=== PATIENT | male | born 1965 | race Caucasian/White ===

== ENCOUNTER 2020-11-25 08:05 | Day surgery (SDC) | payer BC ==
[~2020-11-25] VITALS: Ht 172.7 cm; Wt 79.7 kg
[~2020-11-25 08:05] MED LIST: ASPI325EC PO; ASPI81CH PO; AZIT250 PO; CEPH500 PO; CLON.5 PO; CLOP75 PO; CYCL10 PO; Cipro500 MG PO; Crutch1 EACH MISC; HYDACE5 PO; HYDPAM25 PO; HYOS.125 SL; LISI5 PO; NAPR500 PO; NEBI5 PO; NIAC500ER PO; OXYACE7.5T PO; PROM25 PO; Percocet 5-3251 EACH PO; Prinivil10 MG PO; ROSU10TA PO; TRILIPIX PO; ZOLP10 PO; Zofran4 MG PO
--- NOTE | 2020-11-25 09:48 | NUR ---
11/25/20 0948 Kevin Garcia PATIENT DETERMINED TO BE ASA APPROPRIATE FOR PROPOFOL SEDATION PRIOR TO START OF PROCEDURE BY DR. DELVALLE. 3-LEAD EKG REVIEWED WITH PHYSICIAN PRIOR TO START OF PROCEDURE. Patient to ENDO 1. History, Chart, Medications and Allergies reviewed before start of procedure. MONITOR INTACT WITH CONTINUOUS PULSE OXIMETRY AND INTERMITTENT BP. MONITOR INTACT WITH CONTINUOUS PULSE OXIMETRY AND INTERMITTENT BP. O2 VIA N/C INTACT THROUGHOUT SEDATION/PROCEDURE.
--- NOTE | 2020-11-25 10:45 | NUR ---
PT DENIES ABD CRAMPING OR PAIN c DRINK. GIVEN DC INSTRUCTIONS. PT VERBALIZES AN UNDERSTANDING, NO QUESTIONS. IV DC'D, CATH INTACT AND PRESSURE DRESSING APPLIED. DRESSED s DIFFICULTY. OTD IN NAD VIA WC, SISTER OUTSIDE WAITING FOR PT. GIVEN ADDITONAL INSTRUCTIONS. PT NOR SISTER HAVE QUESTIONS. HOME c SAFE RIDE HOME.
== END 2020-11-25 23:09 | disposition home or self-care (01) ==
LOC: ORSCMMR 08:05 → ORD 09:30 → ORSCMMR 09:30
PROVIDERS: Internal Medicine Gastroenterology
PROC: 0DBM8ZX Excision of Descending Colon, Via Natural or Artificial Opening Endoscopic, Diagnostic (ICD-10-PCS; principal; 2020-11-25 09:30)
PROC: 0DBN8ZX Excision of Sigmoid Colon, Via Natural or Artificial Opening Endoscopic, Diagnostic (ICD-10-PCS; principal; 2020-11-25 09:30)
DX: R19.5 Other fecal abnormalities (principal); D12.5 Benign neoplasm of sigmoid colon; D12.4 Benign neoplasm of descending colon; I25.2 Old myocardial infarction; I25.10 Atherosclerotic heart disease of native coronary artery without angina pectoris; F17.210 Nicotine dependence, cigarettes, uncomplicated; Z79.82 Long term (current) use of aspirin; Z79.899 Other long term (current) drug therapy
CPT/HCPCS: 88305; J2704; J7120

== ENCOUNTER 2021-01-12 10:51 | Emergency (ER) | payer BC ==
[~2021-01-12] VITALS: Ht 172.7 cm; Wt 77.1 kg
[2021-01-12 11:20] LABS: Calcium, Ionized (POC) 1.06 mmol/L (1.10-1.46); Chloride (POC) 100 mmol/L (98-108); Creatinine (POC) 0.8 mg/dL (0.8-1.3); Glucose (ISTAT POC) 78 mg/dL (70-99); Hemoglobin (POC) 18.7 g/dL (13.5-17.5); Potassium (POC) 4.3 mmol/L (3.5-5.5); Sodium (POC) 135 mmol/L (135-148); Total CO2 (POC) 28 mmol/L (21-32)
[2021-01-12 11:26] LABS: BASOPHILS ABSOLUTE AUTO 0.07 K/mm3 (0.00-0.23); BASOPHILS PERCENT AUTO 1 % (0-2); EOSINOPHILS PERCENT AUTO 3 % (0-6); Hematocrit 51.9 % (37.0-53.0); Hemoglobin 17.7 g/dL (13.5-17.5); IMMATURE GRAN ABSOLUTE AUTO 0.04 K/mm3 (0.00-0.10); IMMATURE GRAN PERCENT AUTO 0 % (0-1); LYMPHOCYTES ABSOLUTE AUTO 3.05 K/mm3 (0.84-5.20); LYMPHOCYTES PERCENT AUTO 28 % (21-46); MONOCYTES ABSOLUTE AUTO 0.83 K/mm3 (0.16-1.47); MONOCYTES PERCENT AUTO 8 % (4-13); Mean Corpuscular HGB Conc 34.1 g/dL (31.5-36.5); Mean Corpuscular Volume 94 fL (80-100); Mean Platelet Volume 10.6 fL (9.1-12.4); NEUTROPHILS ABSOLUTE AUTO 6.44 K/mm3 (1.96-9.15); NEUTROPHILS PERCENT AUTO 60 % (41-73); Platelet Count 366 K/mm3 (150-400); RDW Coefficient Variation 11.7 % (11.7-14.2); RDW Standard Deviation 40.6 fL (35.1-46.3); Red Blood Cell Count 5.53 M/mm3 (4.30-5.90); White Blood Cell Count 10.73 K/mm3 (4.00-11.30)
[2021-01-12 11:44] LABS: Alanine Aminotransfer (ALT/SGP 23 U/L (12-78); Albumin, Blood 3.4 g/dL (3.4-5.0); Albumin/Globulin Ratio 0.7 (0.8-1.8); Alk Phos 75 U/L (50-136); Anion Gap 5 mmol/L (6-16); Aspartate Aminotrans (AST/SGOT 24 U/L (12-37); Bilirubin, Total 0.6 mg/dL (0.1-1.0); Blood Urea Nitrogen 10 mg/dL (8-24); Bun/Creatinine Ratio 13.4 (12.0-20.0); CO2, Blood 25 mmol/L (21-32); Calcium, Blood 8.8 mg/dL (8.5-10.1); Chloride, Blood 101 mmol/L (98-108); Creatinine, Blood 0.75 mg/dL (0.60-1.20); Glomerular Filtration Rate >60 (60-); Glucose, Blood 78 mg/dL (70-99); Potassium, Blood 4.4 mmol/L (3.5-5.5); Sodium, Blood 131 mmol/L (136-145); Total Protein, Blood 8.4 g/dL (6.4-8.2)
[2021-01-12] MEDS ORDERED: OXYACE7.5T PO (13:27)
== END 2021-01-12 14:00 | disposition home or self-care (01) ==
LOC: ER 10:51
PROVIDERS: Emergency Medicine
DX: R91.8 Other nonspecific abnormal finding of lung field (principal); I25.2 Old myocardial infarction; F17.200 Nicotine dependence, unspecified, uncomplicated; Z95.5 Presence of coronary angioplasty implant and graft
CPT/HCPCS: 36415; 71260; 80047; 80053; 85014; 85025; 93005; 93010; 99284-25; Q9967

== ENCOUNTER → 2021-01-12 | Outpatient (CLI) | payer BC | LOC: LAB SHORT 09:45 | DX: R07.9 Chest pain, unspecified (principal) | CPT/HCPCS: 85379 ==

== ENCOUNTER 2021-01-23 06:31 | Emergency (ER) | payer BC, OTHER ==
[~2021-01-23] VITALS: Ht 172.7 cm; Wt 79.4 kg
[2021-01-23 07:55] LABS: Calcium, Ionized (POC) 1.16 mmol/L (1.10-1.46); Chloride (POC) 99 mmol/L (98-108); Creatinine (POC) 0.7 mg/dL (0.8-1.3); Glucose (ISTAT POC) 96 mg/dL (70-99); Hemoglobin (POC) 17.7 g/dL (13.5-17.5); Potassium (POC) 4.5 mmol/L (3.5-5.5); Sodium (POC) 139 mmol/L (135-148); Total CO2 (POC) 25 mmol/L (21-32)
[2021-01-23 09:21] LABS: Source, Urine Clean Catch
[2021-01-23] MEDS ORDERED: CYCL10 PO (09:23)
[2021-01-23] MEDS ORDERED: OXYACE7.5T PO (09:23)
[2021-01-23 09:30] LABS: Bilirubin, Urine Neg (Neg); Blood, Urine 2+ (Neg); Glucose Qualitative, Urine Neg (Neg); Ketones, Urine Neg (Neg); Leukocyte Esterase, Urine Neg (Neg); Nitrite, Urine Neg (Neg); Protein, Urine Neg (Neg); Urobilinogen, Urine NORM (Normal)
[2021-01-23 09:32] LABS: Appearance, Urine Clear (Clear); Color, Urine Yellow (P-Yellow)
[2021-01-23 09:45] LABS: Bacteria Few /hpf; Mucus Light (0-Heavy); Squamous Epithelial Cells Not Seen /hpf (Few); White Blood Cells, Urine 0-2 /hpf (0-5)
== END 2021-01-23 09:36 | disposition home or self-care (01) ==
LOC: ER 06:31
PROVIDERS: Emergency Medicine
DX: M54.16 Radiculopathy, lumbar region (principal); I25.2 Old myocardial infarction; Z79.82 Long term (current) use of aspirin; Z87.891 Personal history of nicotine dependence
CPT/HCPCS: 36415; 72100; 80047; 81001; 85014; 99283-25; A9270; J1100

== ENCOUNTER 2021-03-12 09:26 | Inpatient (IN) | payer BC, OTHER ==
[~2021-03-12] VITALS: Ht 172.7 cm; Wt 77.2 kg
[2021-03-12] MEDS ORDERED: IBUP600 PO (09:39)
[2021-03-12] MEDS ORDERED: Lyrica25 MG PO (09:40)
[2021-03-12 09:54] LABS: BASOPHILS ABSOLUTE AUTO 0.05 K/mm3 (0.00-0.23); BASOPHILS PERCENT AUTO 0 % (0-2); EOSINOPHILS ABSOLUTE AUTO 0.01 K/mm3 (0.00-0.68); EOSINOPHILS PERCENT AUTO 0 % (0-6); Hematocrit 41.7 % (37.0-53.0); Hemoglobin 13.4 g/dL (13.5-17.5); IMMATURE GRAN ABSOLUTE AUTO 0.15 K/mm3 (0.00-0.10); IMMATURE GRAN PERCENT AUTO 1 % (0-1); LYMPHOCYTES ABSOLUTE AUTO 0.97 K/mm3 (0.84-5.20); LYMPHOCYTES PERCENT AUTO 5 % (21-46); MONOCYTES ABSOLUTE AUTO 1.38 K/mm3 (0.16-1.47); MONOCYTES PERCENT AUTO 7 % (4-13); Mean Corpuscular HGB 28.6 pg (26.0-34.0); Mean Corpuscular HGB Conc 32.1 g/dL (31.5-36.5); Mean Corpuscular Volume 89 fL (80-100); Mean Platelet Volume 10.3 fL (9.1-12.4); NEUTROPHILS ABSOLUTE AUTO 17.35 K/mm3 (1.96-9.15); NEUTROPHILS PERCENT AUTO 87 % (41-73); Platelet Count 435 K/mm3 (150-400); RDW Standard Deviation 42.5 fL (35.1-46.3); Red Blood Cell Count 4.68 M/mm3 (4.30-5.90); White Blood Cell Count 19.91 K/mm3 (4.00-11.30)
[2021-03-12 10:27] LABS: Alanine Aminotransfer (ALT/SGP 34 U/L (12-78); Albumin, Blood 2.5 g/dL (3.4-5.0); Albumin/Globulin Ratio 0.4 (0.8-1.8); Alk Phos 107 U/L (50-136); Anion Gap 5 mmol/L (6-16); Aspartate Aminotrans (AST/SGOT 51 U/L (12-37); Bilirubin, Total 0.7 mg/dL (0.1-1.0); Blood Urea Nitrogen 12 mg/dL (8-24); CO2, Blood 29 mmol/L (21-32); Calcium, Blood 9.3 mg/dL (8.5-10.1); Chloride, Blood 99 mmol/L (98-108); Creatinine, Blood 0.67 mg/dL (0.60-1.20); Globulin, Blood 6.2 g/dL (2.2-4.0); Glomerular Filtration Rate >60 (60-); Glucose, Blood 164 mg/dL (70-99); Potassium, Blood 3.8 mmol/L (3.5-5.5); Sodium, Blood 133 mmol/L (136-145); Total Protein, Blood 8.7 g/dL (6.4-8.2)
[2021-03-12 10:49] LABS: International Normalized Ratio 1.18; Prothrombin Time Results 12.6 Sec (9.7-11.5)
[2021-03-12] MEDS ORDERED: ENDOCET 7.5-321 EACH PO (11:52)
[2021-03-12] MEDS ORDERED: PREGABALIN75 MG PO (11:52)
[2021-03-12] MEDS ORDERED: LIDOCAINE1 EACH TOP (11:56)
[2021-03-12] MEDS ORDERED: Cyclobenzaprine10 MG PO (11:56)
--- NOTE | 2021-03-12 13:39 | NUR ---
Patient arrived from ER about 30 minutes ago and was able to transfer self to ICU 16 bed. He states no real cardiac chest pain, just right sided pain that he feels from his cancer. He has Nitro gtt at 15 mcg and heparin at 13 units/kg/min. Assessmet and admission done. Dr Mccarthy by and updated patient on times. He will be going to collaborative teacher around three to four [address] Dr Alcala stated clear liq diet. Patient is alert and oriented and is able to communicate his needs.
--- NOTE | 2021-03-12 15:30 | NUR ---
Patient remains in chair and on trach collar at 40% FiO2 and sast mid to upper 90%'s. He had thought that he had another BM was small smear and cleaned him up. He has been resting well in chair and we agreed back to bed at 1630. Have suctioned several more time thisk serosanguinous fluid. VSS, See EMR. Patient states breathing fine on trach collar and feels no SOB while on trach collar.
--- NOTE | 2021-03-12 15:30 | NUR ---
Family at bedside. Patient resting and c/o pain right side and medicated per NOV. VSS See EMR. He asked for water and tolerating well.Heparin reamins at 13 units/kg/min and Nitro gtt at 15 mcg., denies any chest pain.
--- NOTE | 2021-03-12 17:22 | NUR ---
Patient just left to rn labor delivery. Medicated with new order from Dr Alcala for pain. Placed 2L O2 via NC for sats high 80 while dozing and sats 96% currently. Family followed to rn labor delivery waiting room . Pulled 18ga RAC as it was hurting when flushed. Heparin 13 units/kg/min and Nitro gtt at 15 mcg.
--- NOTE | 2021-03-12 21:00 | NUR ---
PT RETURNS FROM [facility] AT 1946. REPORT RECEIVED AT BEDSIDE. PT HAS TR BAND ON RIGHT WRIST. NO OOZING OR HEMATOMA NOTED. GOOD DISTAL CMS CHECKS. PT SLIGHTLY IRRITABLE CONCERNING HAVING TO BE IN THE HOSPITAL AND VISITATION RESTRICTIONS. TEACHING DONE ON RATIONALE FOR THESE. PT IN AGREEMENT. DR VEGA COMES IN TO SEE PT AND SPEAKS TO PT AND GIVES UPDATE. WILL REVIEW CHART AND PLAN OF CARE FOR THIS PT.
--- NOTE | 2021-03-13 00:51 | NUR ---
TR BAND WITHOUT S/S HEMATOMA OR OOZING. HAVE STARTED PROCESS OF DEFLATION. DID DELAY THIS PROCESS SECONDARY TO REPORTED CRITICAL HIGH PTT FROM EARLIER DRAW. PT HAS BEEN ABLE TO SLEEP WELL AFTER BEING MEDICATED WITH OXYCODONE/APAP AND EARLIER WITH MORPHINE FOR RIGHT SIDE CHEST PAIN. WILL CONTINUE TO MONITOR. VOIDS Q.S. CONCENTRATED URINE PER URINAL.
[2021-03-13 03:43] LABS: BASOPHILS ABSOLUTE AUTO 0.05 K/mm3 (0.00-0.23); BASOPHILS PERCENT AUTO 0 % (0-2); EOSINOPHILS ABSOLUTE AUTO 0.04 K/mm3 (0.00-0.68); EOSINOPHILS PERCENT AUTO 0 % (0-6); Hematocrit 33.4 % (37.0-53.0); Hemoglobin 10.7 g/dL (13.5-17.5); IMMATURE GRAN ABSOLUTE AUTO 0.14 K/mm3 (0.00-0.10); IMMATURE GRAN PERCENT AUTO 1 % (0-1); LYMPHOCYTES PERCENT AUTO 8 % (21-46); MONOCYTES ABSOLUTE AUTO 1.87 K/mm3 (0.16-1.47); MONOCYTES PERCENT AUTO 10 % (4-13); Mean Corpuscular HGB 28.8 pg (26.0-34.0); Mean Corpuscular Volume 90 fL (80-100); Mean Platelet Volume 10.1 fL (9.1-12.4); NEUTROPHILS ABSOLUTE AUTO 14.78 K/mm3 (1.96-9.15); NEUTROPHILS PERCENT AUTO 81 % (41-73); Platelet Count 383 K/mm3 (150-400); RDW Coefficient Variation 13.2 % (11.7-14.2); RDW Standard Deviation 43.8 fL (35.1-46.3); Red Blood Cell Count 3.71 M/mm3 (4.30-5.90); White Blood Cell Count 18.28 K/mm3 (4.00-11.30)
[2021-03-13 04:15] LABS: Alanine Aminotransfer (ALT/SGP 21 U/L (12-78); Albumin, Blood 1.9 g/dL (3.4-5.0); Albumin/Globulin Ratio 0.4 (0.8-1.8); Alk Phos 82 U/L (50-136); Anion Gap 5 mmol/L (6-16); Aspartate Aminotrans (AST/SGOT 37 U/L (12-37); Bilirubin, Total 0.8 mg/dL (0.1-1.0); Blood Urea Nitrogen 12 mg/dL (8-24); Bun/Creatinine Ratio 17.1 (12.0-20.0); CO2, Blood 28 mmol/L (21-32); Calcium, Blood 8.2 mg/dL (8.5-10.1); Chloride, Blood 100 mmol/L (98-108); Globulin, Blood 5.1 g/dL (2.2-4.0); Glomerular Filtration Rate >60 (60-); Glucose, Blood 111 mg/dL (70-99); Magnesium, Blood 1.9 mg/dL (1.6-2.4); Potassium, Blood 3.6 mmol/L (3.5-5.5); Sodium, Blood 133 mmol/L (136-145)
--- NOTE | 2021-03-13 07:15 | NUR ---
Assumed care of pt at 0700. Bedside report received from Seth RYAN. Pt A&O x 4. Answers questions. Follows commands. Verbalizes needs. Pleasant and cooperative with care. SR per monitor. SpO2 90% or greater with room air. Pt reports baseline rib pain d/t cancer but no other chest pain. Right TR site dressed with opsite C/D/I. Armboard in place and pt verbalizes understanding of R wrist limitations. Color, sensation, pulses, capillary refill equal BUE. No bruising, drainage, or hematoma to right wrist. Bed in lowest position. Call light in reach. Pt denies need at this time.
--- NOTE | 2021-03-13 07:24 | NUR ---
HAVE MEDICATED PT TWICE WITH 7.5 MG PERCOCET FOR RIGHT RIB PAIN. PT DID ALSO HAVE LOW GRADE TEMP OF 100.1 EARLIER. ADDED 1 TYLENOL 325 MG IN ADDITION TO 1 PERCOCET. PT HAS NO FURTHER COMPLAINTS. DID STATE THAT HE SLEPT BETTER THIS NIGHT MORESO THAN HE HAS IN AWHILE. TR BAND HAS BEEN OFF. NO S/S OOZING OR HEMATOMA. OPSITE DRESSING OVER RIGHT RADIAL PUNCTURE SITE. ARMBOARD IN PLACE. REPORT GIVEN TO ONCOMING RN.
--- NOTE | 2021-03-13 16:16 | NUR ---
Dr Gunter in to see pt today and states that from cardiology standpoint, pt is eligible to discharge home today. Dr Miller plans to keep pt overnight for IV antibiotics due to fever. Pt understands plan and is agreeable. Pt medical floor status without telemetry. Pt states he is having his baseline, cancer related chest pain. Right radial site unchanged. Plans for pt transfer to room 342.
--- NOTE | 2021-03-13 17:04 | NUR ---
Pt transferred to room 342. Telephone report given to Berkley RYAN. Chart, medications, and belongings transferred with patient
--- NOTE | 2021-03-13 17:10 | NUR ---
SHIFT SUMMARY/PT TRANSFERED PT TRANSFERED FROM ICU. PT MEDICATED FOR PAIN. K PAD SET UP FOR PAIN RELIEF OF R THORASIC AREA. NO ACUTE CHANGES FROM PREVIOUS NURSES ASSESSMENT. PT ORIENTED AND FAMLIY AT BEDSIDE. CALL LIGHT IN REACH. PT DENIED OTHER NEEDS AT THIS TIME.
--- NOTE | 2021-03-14 04:43 | NUR ---
SHIFT SUMMARY PT CONTINUED TO HAVE R THORACIC PAIN R/T LUNG CA. R THORACIC DOES APPEAR TO BE SOMEWHAT SWOLLEN. MORE PAINFUL WITH MOVEMENT. MEDICATED X 2 W/ 1 TAB PERCOCET THIS EVENING WITH GOOD EFFECT. PT ABLE TO SLEEP AFTER MEDICATED. PT IN THE LOW TO MID 80'S ON RA AFTER GETTING UP TO THE RESTROOM. PT DOES BECOME SHORT OF BREATH WITH EXERTION. PT PLACED ON 2 L VIA NC BRINGING O2 SATS UP TO THE MID 90'S. PT DENIES CHEST PAIN. OTHERWISE NO ACUTE CHANGES THIS EVENING. VITAL SIGNS STABLE. WILL CONTINUE TO MONITOR.
[2021-03-14 05:03] LABS: BASOPHILS ABSOLUTE AUTO 0.05 K/mm3 (0.00-0.23); BASOPHILS PERCENT AUTO 0 % (0-2); EOSINOPHILS ABSOLUTE AUTO 0.11 K/mm3 (0.00-0.68); EOSINOPHILS PERCENT AUTO 1 % (0-6); Hematocrit 33.7 % (37.0-53.0); Hemoglobin 10.8 g/dL (13.5-17.5); IMMATURE GRAN ABSOLUTE AUTO 0.15 K/mm3 (0.00-0.10); IMMATURE GRAN PERCENT AUTO 1 % (0-1); LYMPHOCYTES ABSOLUTE AUTO 1.52 K/mm3 (0.84-5.20); LYMPHOCYTES PERCENT AUTO 9 % (21-46); MONOCYTES ABSOLUTE AUTO 1.82 K/mm3 (0.16-1.47); MONOCYTES PERCENT AUTO 11 % (4-13); Mean Corpuscular HGB 28.3 pg (26.0-34.0); Mean Corpuscular Volume 89 fL (80-100); NEUTROPHILS PERCENT AUTO 78 % (41-73); Platelet Count 390 K/mm3 (150-400); RDW Coefficient Variation 13.3 % (11.7-14.2); RDW Standard Deviation 42.9 fL (35.1-46.3); Red Blood Cell Count 3.81 M/mm3 (4.30-5.90); White Blood Cell Count 16.35 K/mm3 (4.00-11.30)
[2021-03-14 05:44] LABS: Alanine Aminotransfer (ALT/SGP 27 U/L (12-78); Albumin, Blood 1.7 g/dL (3.4-5.0); Albumin/Globulin Ratio 0.3 (0.8-1.8); Alk Phos 110 U/L (50-136); Anion Gap 6 mmol/L (6-16); Aspartate Aminotrans (AST/SGOT 29 U/L (12-37); Bilirubin, Total 0.6 mg/dL (0.1-1.0); Blood Urea Nitrogen 13 mg/dL (8-24); Bun/Creatinine Ratio 20.1 (12.0-20.0); CO2, Blood 28 mmol/L (21-32); Calcium, Blood 8.1 mg/dL (8.5-10.1); Chloride, Blood 99 mmol/L (98-108); Creatinine, Blood 0.65 mg/dL (0.60-1.20); Globulin, Blood 5.1 g/dL (2.2-4.0); Glomerular Filtration Rate >60 (60-); Glucose, Blood 139 mg/dL (70-99); Magnesium, Blood 2.1 mg/dL (1.6-2.4); Potassium, Blood 3.4 mmol/L (3.5-5.5); Sodium, Blood 133 mmol/L (136-145); Total Protein, Blood 6.8 g/dL (6.4-8.2)
[2021-03-14] MEDS ORDERED: ACET325 PO (11:43)
[2021-03-14] MEDS ORDERED: ASPI81CH PO (11:44)
[2021-03-14] MEDS ORDERED: ALBU90OI INH (11:44)
[2021-03-14] MEDS ORDERED: AZIT250 PO (11:45)
[2021-03-14] MEDS ORDERED: ATOR80 PO (11:45)
[2021-03-14] MEDS ORDERED: CEFP200 PO (11:46)
[2021-03-14] MEDS ORDERED: FAMO20 PO (11:46)
[2021-03-14] MEDS ORDERED: CLOP75 PO (11:46)
[2021-03-14] MEDS ORDERED: METO50 PO (11:47)
[2021-03-14] MEDS ORDERED: LIDO700A20 TOP (11:47)
[2021-03-14] MEDS ORDERED: ONDA4ODT MM (11:48)
[2021-03-14] MEDS ORDERED: NITR.4SL SL (11:48)
[2021-03-14] MEDS ORDERED: LACT PO (11:49)
--- NOTE | 2021-03-14 12:08 | NUR ---
PT TO DISCHARGE HOME . MEDS FAXED TO PHARMACY OF CHOICE.NURSE SENT HOME EDUCATION REGARDING NEW MEDS AND DISCUSSED WITH PT.PT HAS FOLLOW UP WITH PCP AND [facility] TO CALL AND [facility]. PT TO DISCHARGE ON . PT TO BE TAKEN HOME BY DAUGHTER AND WHEELED DOWN .
== END 2021-03-14 14:08 | disposition home or self-care (01) | DRG 248 ==
LOC: ER 09:26 → PCU 09:27 → ICUW 09:27 → MEDS 03-13 16:53
PROVIDERS: Emergency Medicine; ADMIT Family Medicine
PROC: 02713FZ Dilation of Coronary Artery, Two Arteries with Three Intraluminal Devices, Percutaneous Approach (ICD-10-PCS; principal; 2021-03-12)
PROC: B2111ZZ Fluoroscopy of Multiple Coronary Arteries using Low Osmolar Contrast (ICD-10-PCS; 2021-03-12)
DX: I21.09 ST elevation (STEMI) myocardial infarction involving other coronary artery of anterior wall (principal); J18.9 Pneumonia, unspecified organism; E87.1 Hypo-osmolality and hyponatremia; J90 Pleural effusion, not elsewhere classified; C34.91 Malignant neoplasm of unspecified part of right bronchus or lung; J91.8 Pleural effusion in other conditions classified elsewhere; C79.51 Secondary malignant neoplasm of bone; Z20.822 Contact with and (suspected) exposure to COVID-19; I25.2 Old myocardial infarction; Z95.5 Presence of coronary angioplasty implant and graft; Z87.891 Personal history of nicotine dependence; Z79.899 Other long term (current) drug therapy
CPT/HCPCS: 36415; 71045; 76937; 80053; 83735; 84145; 84484; 85025; 85347; 85610; 85730; 92928; 92929; 93005; 93010; 93306; 93454; 93571; 94640; 94667; 94668; 94760; 94761; 96365; 96366; 96375; 96376; 99152; 99153; 99285-25; A9270; C1725; C1769; C1876; C1887; C1894; G0378; J0696; J1170; J1644; J2250; J2270; J2370; J2405; J3010; J7030; J7040; J7050; Q9967

== ENCOUNTER 2021-03-19 10:59 | Inpatient (IN) | payer BC, OTHER ==
[~2021-03-19] VITALS: Ht 172.7 cm; Wt 75.6 kg
[~2021-03-19 10:59] MED LIST changes: +ACET325 PO; +ALBU90OI INH; +ATOR80 PO; +CEFP200 PO; +Cyclobenzaprine10 MG PO; +ENDOCET 7.5-321 EACH PO; +FAMO20 PO; +IBUP600 PO; +LACT PO; +LIDO700A20 TOP; +LIDOCAINE1 EACH TOP; +Lyrica25 MG PO; +METO50 PO; +NITR.4SL SL; +ONDA4ODT MM; +PREGABALIN75 MG PO
[2021-03-19 11:33] LABS: BASOPHILS ABSOLUTE AUTO 0.09 K/mm3 (0.00-0.23); BASOPHILS PERCENT AUTO 1 % (0-2); EOSINOPHILS ABSOLUTE AUTO 0.53 K/mm3 (0.00-0.68); EOSINOPHILS PERCENT AUTO 3 % (0-6); Hematocrit 40.4 % (37.0-53.0); Hemoglobin 12.8 g/dL (13.5-17.5); IMMATURE GRAN ABSOLUTE AUTO 0.21 K/mm3 (0.00-0.10); IMMATURE GRAN PERCENT AUTO 1 % (0-1); LYMPHOCYTES ABSOLUTE AUTO 2.98 K/mm3 (0.84-5.20); LYMPHOCYTES PERCENT AUTO 18 % (21-46); MONOCYTES ABSOLUTE AUTO 1.58 K/mm3 (0.16-1.47); MONOCYTES PERCENT AUTO 9 % (4-13); Mean Corpuscular HGB 28.1 pg (26.0-34.0); Mean Corpuscular HGB Conc 31.7 g/dL (31.5-36.5); Mean Corpuscular Volume 89 fL (80-100); Mean Platelet Volume 9.9 fL (9.1-12.4); NEUTROPHILS ABSOLUTE AUTO 11.56 K/mm3 (1.96-9.15); NEUTROPHILS PERCENT AUTO 68 % (41-73); Platelet Count 713 K/mm3 (150-400); RDW Coefficient Variation 13.5 % (11.7-14.2); RDW Standard Deviation 44.2 fL (35.1-46.3); Red Blood Cell Count 4.55 M/mm3 (4.30-5.90); White Blood Cell Count 16.95 K/mm3 (4.00-11.30)
[2021-03-19 11:48] LABS: Alanine Aminotransfer (ALT/SGP 46 U/L (12-78); Albumin, Blood 2.3 g/dL (3.4-5.0); Albumin/Globulin Ratio 0.3 (0.8-1.8); Alk Phos 159 U/L (50-136); Anion Gap 5 mmol/L (6-16); Aspartate Aminotrans (AST/SGOT 39 U/L (12-37); Bilirubin, Total 0.5 mg/dL (0.1-1.0); Blood Urea Nitrogen 13 mg/dL (8-24); Bun/Creatinine Ratio 20.2 (12.0-20.0); CO2, Blood 29 mmol/L (21-32); Calcium, Blood 9.7 mg/dL (8.5-10.1); Chloride, Blood 99 mmol/L (98-108); Creatinine, Blood 0.65 mg/dL (0.60-1.20); Globulin, Blood 6.6 g/dL (2.2-4.0); Glomerular Filtration Rate >60 (60-); Glucose, Blood 118 mg/dL (70-99); Potassium, Blood 3.9 mmol/L (3.5-5.5); Sodium, Blood 133 mmol/L (136-145); Total Protein, Blood 8.9 g/dL (6.4-8.2)
--- NOTE | 2021-03-19 14:30 | NUR ---
UPDATE PT FROM SANDER MACHINE TO ROOM ICU 11. PT ALERT AND ORIENTED. NO CP REPORTED. REPORT RECIEVED FROM SANDER MACHINE RN. TR BAND IN PLACE. SITE WNL. NO BLEEDING. C/D/I. VS STABLE. CARDIOLOGY ORDERS TO HAVE HOSPITALIST CONSULT. HOSPITALIST NOTIFIED. ORDERS TO HAVE PT ICU STATUS, INPATIENT. SEE ORDERS. ORDERS FOR PT TO HAVE HEAD CT WWO CONTRAST. ORDERS PUT IN. FAMILY AT BEDSIDE.
[2021-03-19 14:46] LABS: BASOPHILS ABSOLUTE AUTO 0.08 K/mm3 (0.00-0.23); BASOPHILS PERCENT AUTO 0 % (0-2); EOSINOPHILS ABSOLUTE AUTO 0.27 K/mm3 (0.00-0.68); EOSINOPHILS PERCENT AUTO 1 % (0-6); IMMATURE GRAN ABSOLUTE AUTO 0.23 K/mm3 (0.00-0.10); IMMATURE GRAN PERCENT AUTO 1 % (0-1); LYMPHOCYTES ABSOLUTE AUTO 2.22 K/mm3 (0.84-5.20); LYMPHOCYTES PERCENT AUTO 10 % (21-46); MONOCYTES ABSOLUTE AUTO 1.33 K/mm3 (0.16-1.47); MONOCYTES PERCENT AUTO 6 % (4-13); Mean Corpuscular HGB 28.4 pg (26.0-34.0); Mean Corpuscular HGB Conc 32.4 g/dL (31.5-36.5); Mean Corpuscular Volume 88 fL (80-100); NEUTROPHILS ABSOLUTE AUTO 17.72 K/mm3 (1.96-9.15); NEUTROPHILS PERCENT AUTO 81 % (41-73); Platelet Count 616 K/mm3 (150-400); RDW Coefficient Variation 13.4 % (11.7-14.2); RDW Standard Deviation 42.8 fL (35.1-46.3); Red Blood Cell Count 4.23 M/mm3 (4.30-5.90); White Blood Cell Count 21.85 K/mm3 (4.00-11.30)
--- NOTE | 2021-03-19 15:17 | NUR ---
UPDATE PT TO CT SCAN. PT WENT BY BED WITH THIS RN AND ASSISTANT PROJECT ENGINEER. PT TOLERATED WELL. HOSPITALIST AWARE OF PT'S HYPERTENION AND THAT PT WILL RECIEVER MEDICATIONS FOR HYPERTENSION THIS EVENING. SEE EMAR. NO OTHER ORDERS AT THIS TIME.
--- NOTE | 2021-03-19 18:30 | NUR ---
SHIFT SUMMARY PT ARRIVED TO UNIT FROM FORECLOSURE FIELD INSPECTOR THIS AFTERNOON. VS STABLE. PT HYPERTENSIVE AT TIMES. PHYSICIAN NOTFIFIED. MEDICATED PER EMAR. PHYSICIAN AWARE OF CONT HYPERTENSION. PT REPORTS PAIN IN CHEST. EKG DONE AND CARDIOLOGY AT BEDSIDE. NITRO GIVEN PER PHYSICIAN ORDER. PT REPORTS NO RELIEF. UPON ASSESSMENT FROM CARDIOLOGY, PAIN LIKELY NOT CARDIAC RELATED. MEDICATED FOR PAIN PER PHYSICIAN ORDER. TR BAND AND ARM BOARD IN PLACE. SENSATION IN FINGERS INTACT. SITE WNL. NO HEMATOMA AT SITE. WILL CONT TO MONITOR UNTIL REPORT GIVEN TO NIGHTSHIFT RN.
--- NOTE | 2021-03-20 05:47 | NUR ---
SHIFT SUMMARY PT WAS IRRITABLE AND REMIANED UNCOMFORTABLE THROUGHOUT NIGHT. C/O SOME CHEST PAIN THAT IS NOT SAME CHEST PAIN THAT HE INITIALLY CAME IN WITH. PT STATES HE SPOKE WITH CARDIOLOGY AND CARDS SUGGESTED THE PAIN IS LIKELY CHEST WALL PAIN AFTER PROCEDURE. PT AGREED. NIGHT WENT ON, PT WAS COMPLAINING OF NOT BEING ABLE TO BREATHE, BUT 02 SATS STABLE ON ROOM AIR, PT DID SAY HE WEARS 3LNC PRN AT HOME WHEN HE FEELS LIKE HE NEEDS MORE O2 R/T RECENT LUNG CANCER DIAGNOSIS. ALBUTEROL TX GIVEN TO ATTEMPT TO MAKE PT COMFORTABLE, ALONG IWTH PAIN MEDICATION. VOIDING TO URINAL, NO BM. TR BAND REMOVED WITHOUT COMPLICATION AT SHIFT CHANGE IWTH DAY RN ON PREVIOUS SHIFT. BP REMAINS ELEVATED, BUT LIKELY R/T PT UNCOMFORTABILITY/IRRITABILITY. OTHER VSS. CALL LIGHT WITHIN REACH, BED IN LOWEST POSITION. WILL CONTINUE TO MONITOR.
[2021-03-20 06:18] LABS: BASOPHILS ABSOLUTE AUTO 0.08 K/mm3 (0.00-0.23); BASOPHILS PERCENT AUTO 0 % (0-2); EOSINOPHILS ABSOLUTE AUTO 0.14 K/mm3 (0.00-0.68); EOSINOPHILS PERCENT AUTO 1 % (0-6); Hematocrit 37.3 % (37.0-53.0); Hemoglobin 12.4 g/dL (13.5-17.5); IMMATURE GRAN ABSOLUTE AUTO 0.21 K/mm3 (0.00-0.10); IMMATURE GRAN PERCENT AUTO 1 % (0-1); LYMPHOCYTES ABSOLUTE AUTO 1.59 K/mm3 (0.84-5.20); LYMPHOCYTES PERCENT AUTO 8 % (21-46); MONOCYTES PERCENT AUTO 7 % (4-13); Mean Corpuscular HGB 28.4 pg (26.0-34.0); Mean Corpuscular HGB Conc 33.2 g/dL (31.5-36.5); Mean Corpuscular Volume 85 fL (80-100); NEUTROPHILS ABSOLUTE AUTO 17.07 K/mm3 (1.96-9.15); NEUTROPHILS PERCENT AUTO 83 % (41-73); Platelet Count 660 K/mm3 (150-400); RDW Coefficient Variation 13.4 % (11.7-14.2); RDW Standard Deviation 41.9 fL (35.1-46.3); Red Blood Cell Count 4.37 M/mm3 (4.30-5.90); White Blood Cell Count 20.59 K/mm3 (4.00-11.30)
[2021-03-20 06:54] LABS: Anion Gap 8 mmol/L (6-16); Blood Urea Nitrogen 10 mg/dL (8-24); Bun/Creatinine Ratio 19.5 (12.0-20.0); CO2, Blood 23 mmol/L (21-32); Calcium, Blood 8.9 mg/dL (8.5-10.1); Chloride, Blood 101 mmol/L (98-108); Creatinine, Blood 0.51 mg/dL (0.60-1.20); Glomerular Filtration Rate >60 (60-); Glucose, Blood 159 mg/dL (70-99); Potassium, Blood 3.6 mmol/L (3.5-5.5); Sodium, Blood 132 mmol/L (136-145)
--- NOTE | 2021-03-20 09:06 | NUR ---
PT SITTING UP IN BED AWAKE A/OX3, PLEASANT AND COOPERTIVE WITH CARE, FOLLOWS COMMANDS WELL, STATES HE IS IN 10 PAIN SECONDARY TO LUNG CANCER, PAIN IS ON RIGHT FLANK, FENTANYL GIVEN FOR THIS WITH GOOD RELEIF, BROUGHT PAIN DOWN TO A 1/10, STATES HE FEELS A LOT BETTER, LUNGS ARE CLEAR IN UPPER JOHNSON, DIM IN BASES, JONN ON RIGHT, IS CURRENTLY ON 3 LITERS 02 VIA N/C, RESP EVEN AND UNLABORED, NO COUGH NOTED, HRR, MONITOR IN PLACE RUNNING SR TO ST PER MONITOR, SEE STRIP, NO EDEMA NOTED, PPP+2, CAP REFILL <3SEC, VS STABLE, AFEBRILE, IV SITE IS CLEAR AND PATENT, TO LEFT AC, S.L. BTX4, ABD FLAT SOFT NONTENDER, VOIDS WITHOUT DIFF, SKIN C/W/D, TR BAND SITE, ARMBOARD IN PLACE WITH OCCLUSIVE DRESSING IN PLACE, YASH COMER, CALL LIGHT IN REACH.
--- NOTE | 2021-03-20 10:12 | NUR ---
Echocardiogram completed.
--- NOTE | 2021-03-20 11:02 | NUR ---
PT SLEEPING, HAS BEEN SINCE HIS PAIN CAME DOWN, STATUS CHANGED TO PCU, CHARGE NURSE NOTIFIED. CALL LIGHT IN REACH.
--- NOTE | 2021-03-20 13:06 | NUR ---
pt doing ok, he was injected for bone scan, will take him down around 1530. no complaints, states he was able to get some sleep after being medicated this am. call light in reach.
--- NOTE | 2021-03-20 15:02 | NUR ---
pt sleepy from narcotics but not somulent states he had more pain last night and fatigued states his rib apin has increased and is like a knowing and chewing pain insde the bone. He has been struggling with constipation. He has dwindling appetite no nausea and decreased function and energy. He is awaiting bone scan and radiation. He is scheduled for bone scan today. Review of medications with hospitalist and pt needs. will update oncology aon pt pain. Pt states he has good support from family and employer and he has resources. PT denies homeopathics or medical marijuanna. pt take alovera for constipation. Review startegies of keeping up with his caloric needs and rest . Will monitor for symptoms. Will try to start an advance directive conversation.
--- NOTE | 2021-03-20 15:49 | NUR ---
PT HAVING A BONE SCAN.
--- NOTE | 2021-03-20 18:43 | NUR ---
PT DOING OK, DAUGHTER CAME IN TO VISIT, HAD BONE SCAN, THERE WERE SOME MEDICATION CHANGED FROM CARDIOLOGY, PALLATIVE CARE NURSE WAS IN TO CONSULT, PT SLEPT A LOT TODAY, CALL LIGHT IN REACH.
--- NOTE | 2021-03-21 05:32 | NUR ---
SHIFT SUMMARY PATIENT TRANSFERRED TO UNIT FROM ICU AT APPROXIMETLY 2230. FOUND TO BE A PLEASANT MAN WHO IS A&0X4. 10/10 PAIN TO RIBS/LUNG UPON ARRIVAL. PRN NORCO Q6H AND FENT Q4H BARELY KEEPING PAIN AT TOLERABLE LEVEL OF 7/10. VSS. SR ON THE MONITOR. ON RA. NO DISTRESS NOTED UPON ASSESMENT. SHALLOW BREATHING R/T PAIN. UP IND IN ROOM. VOIDING WELL WITH BATHROOM PRIV. IS HOPING TO GO HOME TODAY. NO ACUTE CONCERNS AT THIS TIME. WILL CONTINUE TO MONITOR UNTIL REPORT GIVEN TO ANA RYAN.
--- NOTE | 2021-03-21 10:59 | NUR ---
MEDIATED FOR BACK/RIB CANCER PAIN
[2021-03-21] MEDS ORDERED: AMLO5 PO (16:06)
[2021-03-21] MEDS ORDERED: TICA90TA PO (16:07)
== END 2021-03-21 16:41 | disposition home or self-care (01) | DRG 246 ==
LOC: ER 10:59 → ICUW 11:18 → PCU 03-20 22:04
PROVIDERS: Emergency Medicine; ADMIT Internal Medicine Cardiovascular Disease
PROC: 027034Z Dilation of Coronary Artery, One Artery with Drug-eluting Intraluminal Device, Percutaneous Approach (ICD-10-PCS; principal; 2021-03-19)
PROC: 4A023N7 Measurement of Cardiac Sampling and Pressure, Left Heart, Percutaneous Approach (ICD-10-PCS; 2021-03-19)
PROC: B2111ZZ Fluoroscopy of Multiple Coronary Arteries using Low Osmolar Contrast (ICD-10-PCS; 2021-03-19)
PROC: B240ZZ3 Ultrasonography of Single Coronary Artery, Intravascular (ICD-10-PCS; 2021-03-19)
DX: I97.190 Other postprocedural cardiac functional disturbances following cardiac surgery (principal); I21.A9 Other myocardial infarction type; I21.09 ST elevation (STEMI) myocardial infarction involving other coronary artery of anterior wall; T82.867A Thrombosis due to cardiac prosthetic devices, implants and grafts, initial encounter; J90 Pleural effusion, not elsewhere classified; C34.91 Malignant neoplasm of unspecified part of right bronchus or lung; C78.2 Secondary malignant neoplasm of pleura; D47.3 Essential (hemorrhagic) thrombocythemia; E78.5 Hyperlipidemia, unspecified; I10 Essential (primary) hypertension; I25.10 Atherosclerotic heart disease of native coronary artery without angina pectoris; Z95.5 Presence of coronary angioplasty implant and graft; Z79.82 Long term (current) use of aspirin; Z79.899 Other long term (current) drug therapy; I25.2 Old myocardial infarction; Z79.02 Long term (current) use of antithrombotics/antiplatelets; Z87.891 Personal history of nicotine dependence; Y71.8 Miscellaneous cardiovascular devices associated with adverse incidents, not elsewhere classified
CPT/HCPCS: 36415; 70470; 71045; 78306; 80048; 80053; 82378; 83880; 84145; 84484; 85025; 85347; 92921; 92941; 92978; 92979; 93005; 93010; 93308; 93454; 94640; 94664; 96374-59; 96375-59; 99152; 99153; 99285-25; A9270; A9561; C1725; C1753; C1769; C1874; C1887; C1894; C9606; J0360; J1644; J2250; J2270; J2405; J3010; J3246; J7030; J7040; J7050; Q9967

== ENCOUNTER 2021-04-26 11:59 | Emergency (ER) | payer BC ==
[~2021-04-26] VITALS: Ht 172.7 cm; Wt 77.1 kg
[~2021-04-26 11:59] MED LIST changes: +AMLO5 PO; +TICA90TA PO
[2021-04-26 13:28] LABS: BASOPHILS ABSOLUTE AUTO 0.01 K/mm3 (0.00-0.23); BASOPHILS PERCENT AUTO 0 % (0-2); EOSINOPHILS ABSOLUTE AUTO 0.32 K/mm3 (0.00-0.68); EOSINOPHILS PERCENT AUTO 2 % (0-6); Hematocrit 35.9 % (37.0-53.0); Hemoglobin 11.7 g/dL (13.5-17.5); IMMATURE GRAN ABSOLUTE AUTO 0.09 K/mm3 (0.00-0.10); IMMATURE GRAN PERCENT AUTO 1 % (0-1); LYMPHOCYTES ABSOLUTE AUTO 1.06 K/mm3 (0.84-5.20); LYMPHOCYTES PERCENT AUTO 7 % (21-46); MONOCYTES ABSOLUTE AUTO 0.12 K/mm3 (0.16-1.47); MONOCYTES PERCENT AUTO 1 % (4-13); Mean Corpuscular HGB 27.7 pg (26.0-34.0); Mean Corpuscular HGB Conc 32.6 g/dL (31.5-36.5); Mean Corpuscular Volume 85 fL (80-100); Mean Platelet Volume 10.3 fL (9.1-12.4); NEUTROPHILS ABSOLUTE AUTO 13.27 K/mm3 (1.96-9.15); NEUTROPHILS PERCENT AUTO 89 % (41-73); Platelet Count 399 K/mm3 (150-400); RDW Coefficient Variation 15.4 % (11.7-14.2); RDW Standard Deviation 47.7 fL (35.1-46.3); Red Blood Cell Count 4.23 M/mm3 (4.30-5.90); White Blood Cell Count 14.87 K/mm3 (4.00-11.30)
[2021-04-26 13:45] LABS: Alanine Aminotransfer (ALT/SGP 28 U/L (12-78); Albumin, Blood 2.7 g/dL (3.4-5.0); Albumin/Globulin Ratio 0.5 (0.8-1.8); Alk Phos 77 U/L (50-136); Anion Gap 6 mmol/L (6-16); Aspartate Aminotrans (AST/SGOT 18 U/L (12-37); Bilirubin, Total 0.8 mg/dL (0.1-1.0); Blood Urea Nitrogen 31 mg/dL (8-24); CO2, Blood 24 mmol/L (21-32); Calcium, Blood 8.6 mg/dL (8.5-10.1); Chloride, Blood 99 mmol/L (98-108); Creatinine, Blood 0.44 mg/dL (0.60-1.20); Globulin, Blood 5.6 g/dL (2.2-4.0); Glomerular Filtration Rate >60 (60-); Glucose, Blood 105 mg/dL (70-99); Potassium, Blood 4.5 mmol/L (3.5-5.5); Sodium, Blood 129 mmol/L (136-145); Total Protein, Blood 8.3 g/dL (6.4-8.2)
[2021-04-26 15:51] LABS: Source, Urine Clean Catch
[2021-04-26] MEDS ORDERED: FENTANYL1 EAC7 TOP (15:51)
[2021-04-26] MEDS ORDERED: FURO20 PO (15:52)
[2021-04-26 15:53] LABS: Appearance, Urine Clear (Clear); Bilirubin, Urine Neg (Neg); Blood, Urine 1+ (Neg); Color, Urine Yellow (P-Yellow); Glucose Qualitative, Urine Neg (Neg); Ketones, Urine Neg (Neg); Leukocyte Esterase, Urine Neg (Neg); Nitrite, Urine Neg (Neg); Protein, Urine 2+ (Neg); Urobilinogen, Urine 1+ (Normal)
[2021-04-26 16:16] LABS: Granular Casts 0-2 /lpf (0)
[2021-04-26 16:17] LABS: Bacteria Few /hpf; Squamous Epithelial Cells Rare /hpf (Few)
== END 2021-04-26 17:54 | disposition home or self-care (01) ==
LOC: ER 11:59
PROVIDERS: Physician Assistant
DX: C34.90 Malignant neoplasm of unspecified part of unspecified bronchus or lung (principal); G89.3 Neoplasm related pain (acute) (chronic)
CPT/HCPCS: 80053; 81001; 85025; 96374; 96375; 96376; 99284-25; J1170; J1885

== ENCOUNTER 2021-11-18 16:30 | Day surgery (SDC) | payer BC ==
[~2021-11-18 16:30] MED LIST changes: +FENTANYL1 EAC7 TOP; +FURO20 PO
== END 2021-11-18 17:55 | disposition home or self-care (01) ==
LOC: ATC 16:30
DX: A08.4 Viral intestinal infection, unspecified (principal); C34.91 Malignant neoplasm of unspecified part of right bronchus or lung
CPT/HCPCS: J7120

== ENCOUNTER → 2021-11-21 | Outpatient (CLI) | payer BC ==
[2021-11-21 13:23] LABS: BASOPHILS ABSOLUTE AUTO 0.05 K/mm3 (0.00-0.23); BASOPHILS PERCENT AUTO 1 % (0-2); EOSINOPHILS ABSOLUTE AUTO 0.13 K/mm3 (0.00-0.68); EOSINOPHILS PERCENT AUTO 2 % (0-6); Hematocrit 43.8 % (37.0-53.0); Hemoglobin 14.5 g/dL (13.5-17.5); IMMATURE GRAN ABSOLUTE AUTO 0.06 K/mm3 (0.00-0.10); IMMATURE GRAN PERCENT AUTO 1 % (0-1); LYMPHOCYTES ABSOLUTE AUTO 1.38 K/mm3 (0.84-5.20); LYMPHOCYTES PERCENT AUTO 18 % (21-46); MONOCYTES ABSOLUTE AUTO 0.85 K/mm3 (0.16-1.47); MONOCYTES PERCENT AUTO 11 % (4-13); Mean Corpuscular HGB 32.1 pg (26.0-34.0); Mean Corpuscular HGB Conc 33.1 g/dL (31.5-36.5); Mean Corpuscular Volume 97 fL (80-100); Mean Platelet Volume 9.7 fL (9.1-12.4); NEUTROPHILS ABSOLUTE AUTO 5.22 K/mm3 (1.96-9.15); NEUTROPHILS PERCENT AUTO 68 % (41-73); Platelet Count 259 K/mm3 (150-400); RDW Coefficient Variation 13.9 % (11.7-14.2); RDW Standard Deviation 49.2 fL (35.1-46.3); Red Blood Cell Count 4.52 M/mm3 (4.30-5.90); White Blood Cell Count 7.69 K/mm3 (4.00-11.30)
[2021-11-21 13:43] LABS: Alanine Aminotransfer (ALT/SGP 24 U/L (12-78); Albumin, Blood 3.3 g/dL (3.4-5.0); Albumin/Globulin Ratio 0.9 (0.8-1.8); Alk Phos 58 U/L (40-126); Anion Gap 7 mmol/L (6-16); Aspartate Aminotrans (AST/SGOT 19 U/L (12-37); Bilirubin, Total 0.2 mg/dL (0.1-1.0); Blood Urea Nitrogen 9 mg/dL (8-24); Bun/Creatinine Ratio 9.1 (12.0-20.0); CO2, Blood 30 mmol/L (21-32); Calcium, Blood 8.8 mg/dL (8.5-10.1); Chloride, Blood 100 mmol/L (98-108); Creatinine, Blood 0.99 mg/dL (0.60-1.20); Globulin, Blood 3.8 g/dL (2.2-4.0); Glomerular Filtration Rate >60 (60-); Glucose, Blood 107 mg/dL (70-99); Potassium, Blood 4.2 mmol/L (3.5-5.5); Sodium, Blood 137 mmol/L (136-145); Total Protein, Blood 7.1 g/dL (6.4-8.2)
== END ==
LOC: LAB SHORT 13:18
PROVIDERS: Physician Assistant Surgical
DX: R11.2 Nausea with vomiting, unspecified (principal)
CPT/HCPCS: 80053; 83690; 85025

== ENCOUNTER → 2021-11-22 | Outpatient (CLI) | payer BC ==
[2021-11-22 21:06] LABS: Adenovirus F 40/41 Not Detected (NOT DETECT); Astrovirus Not Detected (NOT DETECT); Campylobacter Sp Not Detected (NOT DETECT); Cryptosporidium Not Detected (NOT DETECT); Cyclospora Cayetanensis Not Detected (NOT DETECT); E. Coli O157 Not Detected (NOT DETECT); Entamoeba Histolytica Not Detected (NOT DETECT); Enteroaggregative E. coli-EAEC Not Detected (NOT DETECT); Enteropathogenic E. coli-EPEC Not Detected (NOT DETECT); Enterotoxigenic E. coli-ETEC Not Detected (NOT DETECT); Giardia Lamblia Not Detected (NOT DETECT); Norovirus GI/GII Not Detected (NOT DETECT); Plesiomonas Shigelloides Not Detected (NOT DETECT); Rotavirus A Not Detected (NOT DETECT); Salmonella Sp Not Detected (NOT DETECT); Sapovirus Not Detected (NOT DETECT); Shiga Toxin-prod E. coli-STEC Not Detected (NOT DETECT); Shigella/Enteroin E. coli-EIEC Not Detected (NOT DETECT); Vibrio Cholerae Not Detected (NOT DETECT); Vibrio Sp Not Detected (NOT DETECT); Yersinia Enterocolitica Not Detected (NOT DETECT)
== END ==
LOC: LAB SHORT 12:36
PROVIDERS: Physician Assistant Surgical
DX: R19.7 Diarrhea, unspecified (principal)
CPT/HCPCS: 0097U